=== PATIENT | male | born 1955 | race Two or more races ===

== ENCOUNTER 2020-11-13 10:15 | Inpatient (IN) | payer OTHER ==
[~2020-11-13] VITALS: Ht 172.7 cm; Wt 66.2 kg
[2020-11-13] MEDS ORDERED: ULTRAM50 MG PO (13:40)
[2020-11-13] MEDS ORDERED: RELAFEN DS1000 MG PO (13:40)
[2020-11-13] MEDS ORDERED: PROSCAR5 MG PO (13:41)
[2020-11-13] MEDS ORDERED: CENTRUM COMPLE1 EACH PO (13:41)
[2020-11-13] MEDS ORDERED: TOBRADEX ST EYE5 ML OP (13:42)
[2020-11-13] MEDS ORDERED: HORIZANT300 MG PO (13:43)
[2020-11-13] MEDS ORDERED: CLONAZEPAM2 MG PO (13:43)
[2020-11-13] MEDS ORDERED: TAMS0.4C PO (13:43)
[2020-11-13] MEDS ORDERED: PRILOSEC PO (13:44)
[2020-11-19] MEDS ORDERED: BRIMONIDINE TART5 ML (11:02)
[2020-11-19] MEDS ORDERED: CLONAZEPAM1 MG (11:03)
[2020-11-19] MEDS ORDERED: GABAPENTIN300 M2 (11:03)
[2020-11-19] MEDS ORDERED: OMEPRAZOLE20 MG (11:03)
== END 2020-11-20 09:09 | disposition home or self-care (01) | DRG 334 ==
LOC: SURH 11-19 07:00 → O/R 11-19 07:34 → SURG 11-19 07:34 → SURH 11-19 10:15 → SURG 11-19 13:58
PROVIDERS: ADMIT Colon & Rectal Surgery; ATTEND Colon & Rectal Surgery
PROC: 0DUR07Z Supplement Anal Sphincter with Autologous Tissue Substitute, Open Approach (ICD-10-PCS; 2020-11-19)
PROC: 0DTP7ZZ Resection of Rectum, Via Natural or Artificial Opening (ICD-10-PCS; principal; 2020-11-19 07:00)
DX: K62.3 Rectal prolapse (principal); R15.9 Full incontinence of feces; N40.0 Benign prostatic hyperplasia without lower urinary tract symptoms